=== PATIENT | male | born 1970 | race Caucasian/White ===

== ENCOUNTER 2019-03-21 10:51 | Outpatient (RCR) | payer MEDICARE | END 2019-03-27 | LOC: WCC 10:51 | PROVIDERS: ATTEND Plastic Surgery | DX: S21.101A Unspecified open wound of right front wall of thorax without penetration into thoracic cavity, initial encounter (principal); S20.90XA Unspecified superficial injury of unspecified parts of thorax, initial encounter; M86.9 Osteomyelitis, unspecified | CPT/HCPCS: 87071; 87075; 87186; 87205 ==

== ENCOUNTER → 2019-05-02 | Outpatient (CLI) | payer MEDICARE ==
--- NOTE | 2019-05-03 09:42 | Diagnostic Imaging Report ---
MRI of the pelvis with and without contrast. History: Open wound. Osteomyelitis. Right-sided wound. Prior left knee amputation. Technique: Multiplanar multisequence MRI of the pelvis with and without IV contrast. 17 cc IV gadolinium contrast material was administered Findings: Apparent ostomy at the anterior right lower abdomen. Abnormal skin thickening with skin ulceration adjacent to the superior right iliac bone. There is associated abnormal soft tissue edema and abnormal contrast enhancement with underlying cortical destruction and bone marrow edema consistent with osteomyelitis involving the superior lateral right iliac bone. This is best seen on axial series 11 image 11 through 19. There is what appears to be a small phlegmon in the subcutaneous fat. No definite well formed drainable fluid collection/abscess is seen. Enlarged right inguinal lymph nodes are thought to be reactive area Enlarged heterogeneous prostate gland measuring 5.8 cm medial to lateral. The urinary bladder and remainder of the visualized pelvic structures are otherwise grossly unremarkable. Diffuse muscle atrophy. The visualized neurovascular bundles are intact. No acute fracture or dislocation. No evidence of avascular necrosis. Right and left hip joint effusions may be reactive. No osseous erosion. Impression: Findings consistent with cellulitis/skin ulceration and osteomyelitis involving the superior-lateral right iliac bone and adjacent soft tissues. There appears to be a small phlegmon in the adjacent subcutaneous fat. No well-formed drainable fluid collection/abscess is seen. Signed by: Dr. Greg Neri M.D. on 05/03/2019 8:58 AM
== END ==
LOC: MRI 14:37
PROVIDERS: ATTEND Plastic Surgery
DX: S21.101A Unspecified open wound of right front wall of thorax without penetration into thoracic cavity, initial encounter (principal)
CPT/HCPCS: 72197

== ENCOUNTER 2019-05-09 12:43 | Outpatient (RCR) | payer MEDICARE | END 2019-05-28 | LOC: WCC 12:43 | PROVIDERS: ATTEND Plastic Surgery | DX: M86.18 Other acute osteomyelitis, other site (principal); M86.9 Osteomyelitis, unspecified; S21.101A Unspecified open wound of right front wall of thorax without penetration into thoracic cavity, initial encounter; S20.90XA Unspecified superficial injury of unspecified parts of thorax, initial encounter ==

== ENCOUNTER 2019-06-06 13:31 | Outpatient (RCR) | payer MEDICARE | END 2019-06-27 | LOC: WCC 13:31 | PROVIDERS: ATTEND Plastic Surgery | DX: M86.18 Other acute osteomyelitis, other site (principal); M86.9 Osteomyelitis, unspecified; S21.101A Unspecified open wound of right front wall of thorax without penetration into thoracic cavity, initial encounter; S20.90XA Unspecified superficial injury of unspecified parts of thorax, initial encounter ==

== ENCOUNTER → 2019-07-04 | Outpatient (CLI) | payer MEDICARE | LOC: WCC 14:20 | PROVIDERS: ATTEND Plastic Surgery | DX: M86.18 Other acute osteomyelitis, other site (principal); M86.9 Osteomyelitis, unspecified; S21.101A Unspecified open wound of right front wall of thorax without penetration into thoracic cavity, initial encounter; S20.90XA Unspecified superficial injury of unspecified parts of thorax, initial encounter ==

== ENCOUNTER 2019-08-01 15:11 | Outpatient (RCR) | payer MEDICARE ==
[~2019-08-01 15:11] MED LIST: GADOBENATE DIMEGLUMINE 1 ML IV ONE
== END 2019-08-27 ==
LOC: WCC 15:11
PROVIDERS: ATTEND Plastic Surgery
DX: M86.18 Other acute osteomyelitis, other site (principal); M86.9 Osteomyelitis, unspecified; S21.101A Unspecified open wound of right front wall of thorax without penetration into thoracic cavity, initial encounter; S20.90XA Unspecified superficial injury of unspecified parts of thorax, initial encounter
CPT/HCPCS: 99213; A9577